=== PATIENT | female | born 1965 | race Caucasian/White ===

== ENCOUNTER 2016-10-04 17:02 | Emergency (ER) | payer OTHER ==
--- NOTE | 2016-10-04 18:19 | RADIOLOGY REPORT ---
HISTORY: Trauma 2 weeks ago. Left urrutia pain. COMPARISON: Knee series 12/15/2015 FINDINGS: 3 radiographs of the tibia-fibula. Unchanged total knee replacement. There some lucency that has prog ressed between the tibial component and bone stock both laterally and medially. No evidence of fractu re. Calcaneal spurring. Bone mineralization is age appropriate. Unchanged calcification projecting ne ar the medial knee joint space likely calcification within the MCL. IMPRESSION: No acute abnormality. 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 Final Electronic Signature: This report was electronically signed by Doug Schwartz MD on 10/04/2016 6: 16 PM. [email or web address] /
--- NOTE | 2016-10-04 18:28 | ER NURSING DOCUMENTATION ---
Nurse's Notes [facility] Name:Joie Kennedy Age:51 yrs Sex:Female :1965 Arrival Date:10/04/2016 Time:17:02 Bed3 Private MD:Carmella Carpenter Diagnosis:Lower Leg Contusion Presentation: 10/04 17:07 Acuity: PAUL 3 tg 17:19 Presenting complaint: Patient states: Two weeks ago fell through a porch step landing sj hard on feet. Persistent pain in right ankle/foot and left popliteal area and left urrutia. Transition of care: Home. 17:19 Method Of Arrival: Private Vehicle sj Triage Assessment: 17:25 General: Appears uncomfortable, Behavior is cooperative, pleasant. Pain: Complains of sj pain in right lateral malleolus and right 4th and 5th metatarsal, as well as left urrutia and left popliteal area Aggravated by increased activity, weight bearing. Neuro: Level of Consciousness is awake, alert, Oriented to person, place, time, event. Cardiovascular: Capillary refill < 3 seconds Pulses are all present. Respiratory: Airway is patent Respiratory effort is even, unlabored, Respiratory pattern is regular. Musculoskeletal: Circulation, motion, and sensation intact Capillary refill < 3 seconds Swelling present in right lateral malleolus. Musculoskeletal: Reports pain in right lateral foot and ankle, left popliteal area and left urrutia. Injury Description: Crush injury was sustained two weeks ago. Historical: - Allergies: Versed; contrast dye; - PMHx: None; - PSHx: total knee arthroplasty; scheduled surgery 10/05 for left wrist; - Tetanus: < 10 years. - Ebola Screening: : Patient negative for fever greater than or equal to 101.5 degrees Fahrenheit, and additional compatible Ebola Virus Disease symptoms. Patient denies exposure to infectious person. Patient denies travel to an Ebola-affected area in the 21 days before illness onset. No symptoms or risks identified at this time. . - Immunization history: Pneumococcal vaccine is not up to date, Patient has never been vaccinated Flu Vaccine < 1 year. - Social history: Smoking status: Patient states was never smoker of tobacco. Patient uses alcohol but reports only rare drinking. Patient/guardian denies using marijuana. Screenin:33 Infectious Disease Risk None. Abuse screen: Denies threats or abuse. Denies injuries sj from another. Nutritional screening: No deficits noted. Assessment: 17:32 See Triage Assessment done by same RN. Vital Signs: 17:32 BP 152 / 104; Pulse 108; Resp 16; Temp 97.6(O); Pulse Ox 95% on R/A; Weight 97.07 kg; sj Height 5 ft. 6 in. (167.64 cm); Pain 5/10; 17:32 Body Mass Index 34.54 (97.07 kg, 167.64 cm) [place] Coma Score: 17:25 Eye Response: spontaneous(4). Verbal Response: oriented(5). Motor Response: obeys cd commands(6). Total: 15. ED Course: 17:03 Patient arrived in ED. ds 17:03 Carmella Carpenter MD is Private Physician. ds 17:07 Triage completed. tg 17:13 Jairo Lewis MD is Attending Physician. cd 17:19 Erin Graham is Primary Nurse. sj 17:32 Notified ED Physician of patient's arrival and chief complaint. Dr. Lewis notified. sj 17:33 Valuables Given to family. Patient has correct armband on for positive identification. Bed in low position. Call light in reach. Side rails up X 1. Warm blanket given. 17:47 Port Xray Completed. tt 18:20 Carmella Carpenter MD is Referral Physician. cd Administered Medications: No medications were administered Outcome: 18:20 Discharge ordered by . cd 18:26 Discharged to home ambulatory, with family. sj 18:26 Condition: stable 18:26 Instructed on discharge instructions, follow up and referral plans. medication usage, no drinking with medication, Demonstrated understanding of instructions, medications, Prescriptions given X 1. 18:27 Patient left the ED. Signatures: Charles Vick, RN RN tg Srot, Danna, Reg Reg ds Jairo Lewis MD MD cd Annabelle Jimenez tt Erin Graham
--- NOTE | 2016-10-04 18:28 | ER PHYSICIAN DOCUMENTATION ---
Physician Documentation [facility] Name:Joie Kennedy Age:51 yrs Sex:Female :1965 Arrival Date:10/04/2016 Time:17:02 Bed3 Private MD:Carmella Carpenter ED, Chris Disposition: 10/04/16 18:20 Discharged to Home/Self Care. Impression: Lower Leg Contusion. - Condition is Good. - Discharge Instructions: CONTUSION, Lower Extremity. - Prescriptions for Hydrocodone- Acetaminophen 5-325 mg Oral - take 1 tablet by ORAL route every 6 hours As needed; 12 tablet. - Medical Reconciliation form form. - Follow up: Carmella Carpenter MD; When: 7 - 10 days; Reason: Recheck today's complaints, Continuance of care. - Problem is new. - Symptoms are unchanged. HPI: 10/04 17:05 This 51 yrs old Female presents to ER via Private Vehicle with complaints of cd Leg Injury. 17:05 The patient presents with a contusion, tenderness. The complaints affect the lateral cd aspect of left knee and medial aspect of left knee. Context: The problem was sustained at home, resulted from the patient falling, 5 feet through a deck landing on her feet, the patient can fully bear weight, the patient is able to ambulate. Onset: The symptom(s)/episode began/occurred acutely, 2 week(s) ago. Severity of symptoms: At their worst the symptoms were mild, in the emergency department the symptoms are unchanged. Historical: - Allergies: Versed; contrast dye; - PMHx: None; - PSHx: total knee arthroplasty; scheduled surgery 10/05 for left wrist; - Tetanus: < 10 years. - Ebola Screening: : Patient negative for fever greater than or equal to 101.5 degrees Fahrenheit, and additional compatible Ebola Virus Disease symptoms. Patient denies exposure to infectious person. Patient denies travel to an Ebola-affected area in the 21 days before illness onset. No symptoms or risks identified at this time. . - Immunization history: Pneumococcal vaccine is not up to date, Patient has never been vaccinated Flu Vaccine < 1 year. - Social history: Smoking status: Patient states was never smoker of tobacco. Patient uses alcohol but reports only rare drinking. Patient/guardian denies using marijuana. ROS: 17:25 MS/extremity: Positive for tenderness, of the medial aspect of left knee and lateral cd aspect of left knee, Negative for decreased range of motion, deformity, ecchymosis. 17:25 All other systems are negative. Exam: 17:25 Constitutional: The patient appears alert, awake, well developed, well nourished, in cd obvious distress, mildly distressed. 17:25 Musculoskeletal/extremity: Extremities: grossly normal except: noted in the lateral aspect of left knee, medial aspect of left knee and left knee: tenderness, ROM: limited active range of motion due to pain, Circulation is intact in all extremities. Sensation intact. 17:25 Skin: Exam negative for acute changes. Vital Signs: 17:32 BP 152 / 104; Pulse 108; Resp 16; Temp 97.6(O); Pulse Ox 95% on R/A; Weight 97.07 kg; sj Height 5 ft. 6 in. (167.64 cm); Pain 5/10; 17:32 Body Mass Index 34.54 (97.07 kg, 167.64 cm) [place] Coma Score: 17:25 Eye Response: spontaneous(4). Verbal Response: oriented(5). Motor Response: obeys cd commands(6). Total: 15. MDM: 17:13 Patient medically screened. cd 18:15 Data reviewed: vital signs, nurses notes, old medical records, radiologic studies, cd plain films, and as a result, I will discharge patient. Data interpreted: Pulse oximetry: on room air is 95 %. Interpretation: normal. Counseling: I had a detailed discussion with the patient and/or guardian regarding: the historical points, exam findings, and any diagnostic results supporting the discharge/admit diagnosis, radiology results, the need for outpatient follow up, for a referral to a specialist, a orthopedic surgeon, to return to the emergency department if symptoms worsen or persist or if there are any questions or concerns that arise at home. 10/04 18:21 Order name: TIBIA/[id number]; 2V [place] [id number]; Complete Time: 18:16 EDMS Dispensed Medications: No medications were administered Signatures: Jairo Lewis MD MD cd Janzen, Sarah sj
== END 2016-10-04 18:28 | disposition home or self-care (01) ==
LOC: ER 17:02
DX: S80.02XA Contusion of left knee, initial encounter (principal); W17.89XA Other fall from one level to another, initial encounter; Y92.018 Other place in single-family (private) house as the place of occurrence of the external cause; Y93.01 Activity, walking, marching and hiking
CPT/HCPCS: 99283